=== PATIENT | female | born 1965 | race Caucasian/White ===

== ENCOUNTER 2018-03-28 07:22 | Day surgery (SDC) | payer OTHER ==
[2018-03-24 09:32] VITALS: BMI 21.8
[2018-03-28] MEDS ORDERED: PROPOFOL 20 ML ONE ×2 (09:48)
[2018-03-28 10:42] VITALS: PULSE 71
[2018-03-28 10:47] VITALS: BP 136/60; TEMP 97.9
== END 2018-03-28 10:46 | disposition home or self-care (01) ==
LOC: FASU-ENDO 07:22
PROVIDERS: ATTEND Internal Medicine Gastroenterology
PROC: 0DJD8ZZ Inspection of Lower Intestinal Tract, Via Natural or Artificial Opening Endoscopic (ICD-10-PCS; principal; 2018-03-28 09:51)
DX: Z12.11 Encounter for screening for malignant neoplasm of colon (principal); Z80.0 Family history of malignant neoplasm of digestive organs; Z83.71 Family history of colonic polyps